=== PATIENT | female | born 1990 | race Caucasian/White ===

== ENCOUNTER 2016-10-19 17:51 | Emergency (ER) | payer BC, OTHER ==
[2016-10-19] MEDS ORDERED: SODIUM CHLORIDE 1,000 ML IV STA (17:52)
--- NOTE | 2016-10-19 17:52 | PDOC ---
History of Present Illness - History of Present Illness Initial Comments: 10/19/16 18:06 Patient is a 26 year old female with significant medical hx of Crohn's disease ( on [place] and PO mesalamine) who is presenting to the ED with lower abdominal pain, nausea and vomiting since two am. Patient reports she developed an onset of crampy, non-radiating lower abdominal pain that worsened with movement, and then began having nausea and vomiting shortly after. She's had about five episodes of vomiting and denies any diarrhea. The patient reports she is able to tolerate fluids but not food. The patient reports she had a normal bowel movement this morning without any blood, mucous or urgency. The patient notes that these symptoms are unlike her flares from crohn's. The patient has 3-4 flares per year. Denies fever, chills, changes in urination. No recent ingestion of river, stream or buckner water. No recent ingestion of raw meat. No recent ingestion of shellfish. No antibiotic use in the past 6 months. Patient recently travelled to [place] for a few days during New Years. No sick contacts with similar symptoms. No blood or mucous noted in the stools. <Carmencita Esteves - Last Filed: 10/19/16 18:39> <Parker Maldonado - Last Filed: 10/19/16 18:46> - General Chief Complaint: Pain Stated Complaint: PELVIC PAIN Time Seen by Provider: 10/19/16 17:52 Past History <Carmencita Esteves - Last Filed: 10/19/16 18:39> - Past Medical History Anemia: No Asthma: No Cancer: No Cardiac Disorders: No CVA: No COPD: No CHF: No Dementia: No Diabetes: No GI Disorders: Yes (COLITIS) Disorders: No HTN: No Hypercholesterolemia: No Liver Disease: No Seizures: No Thyroid Disease: No - Surgical History Abdominal Surgery: No Appendectomy: No Cardiac Surgery: No Cholecystectomy: No Lung Surgery: No Neurologic Surgery: No Orthopedic Surgery: No - Psycho/Social/Smoking Cessation Hx Smoking History: Never smoked Hx Alcohol Use: No Drug/Substance Use Hx: No <Parker Maldonado - Last Filed: 10/19/16 18:46> - Past Medical History Allergies/Adverse Reactions: Allergies Allergy/AdvReac Type Severity Reaction Status Date / Time No Known Allergies Allergy Verified 10/19/16 17:52 Home Medications: Ambulatory Orders Mesalamine Enema [Rowasa Enema -] 1 gm EP HS 07/01/12 Review of Systems - Review of Systems Comments:: 10/19/16 18:12 CONSTITUTIONAL: Absent: fever, chills, diaphoresis, generalized weakness, malaise, loss of appetite HEENT: Absent: rhinorrhea, nasal congestion, throat pain, throat swelling, difficulty swallowing, mouth swelling, ear pain, eye pain, visual changes CARDIOVASCULAR: Absent: chest pain, syncope, palpitations, irregular heart rate, lightheadedness , peripheral edema RESPIRATORY: Absent: cough, shortness of breath, dyspnea with exertion, orthopnea, wheezing, stridor, hemoptysis GASTROINTESTINAL: Present: abdominal pain, nausea, vomiting Absent: abdominal distension, diarrhea, constipation, melena, hematochezia GENITOURINARY: Absent: dysuria, frequency, urgency, hesitancy, hematuria, flank pain, genital pain MUSCULOSKELETAL: Absent: myalgia, arthralgia, joint swelling SKIN: Absent: rash, itching, pallor HEMATOLOGIC/IMMUNOLOGIC: Absent: easy bleeding, easy bruising, lymphadenopathy, frequent infections ENDOCRINE: Absent: unexplained weight gain, unexplained weight loss, heat intolerance, cold intolerance NEUROLOGIC: Absent: headache, focal weakness or paresthesia, dizziness, unsteady gait, seizure, mental status changes, bladder or bowel incontinence. PSYCHIATRIC: Absent: anxiety, depression, suicidal or homicidal ideation, hallucinations <Carmencita Esteves - Last Filed: 10/19/16 18:39> *Physical Exam - Vital Signs Last Vital Signs Temp Pulse Resp BP Pulse Ox 98.4 F 120 H 18 113/77 100 10/19/16 17:52 10/19/16 17:52 10/19/16 17:52 10/19/16 17:52 10/19/16 17:52 - Physical Exam Comments: 10/19/16 18:12 GENERAL: Well developed, well nourished. Awake and alert. No acute distress. HEENT: Normocephalic, atraumatic. PERRLA, EOMI. No conjunctival pallor. Sclera are non- icteric. Dry mucous membranes. Oropharynx is clear. NECK: Supple. Full ROM. No JVD. Carotid pulses 2+ and symmetric, without bruits. No thyromegaly. No lymphadenopathy. CARDIOVASCULAR: Regular rate and rhythm. No murmurs, rubs, or gallops. Distal pulses are 2+ and symmetric. PULMONARY: No evidence of respiratory distress. Lungs clear to auscultation bilaterally. No wheezing, rales or rhonchi. ABDOMINAL: Soft. Minimal suprapubic tenderness on deep palpation. Non-distended. No rebound or guarding. No organomegaly. Normoactive bowel sounds. MUSCULOSKELETAL: Normal range of motion at all joints. No bony deformities or tenderness. No CVA tenderness. EXTREMITIES: No cyanosis. No clubbing. No edema. No calf tenderness. SKIN: Warm and dry. Normal capillary refill. No rashes. No jaundice. NEUROLOGICAL: Alert, awake, appropriate. Cranial nerves 2-12 intact. Normal speech. Gait is normal without ataxia. PSYCHIATRIC: Cooperative. Good eye contact. Appropriate mood and affect. <Carmencita Esteves - Last Filed: 10/19/16 18:39> ED Treatment Course - LABORATORY CBC & Chemistry Diagram: 10/19/16 18:12 10/19/16 18:12 <Carmencita Esteves - Last Filed: 10/19/16 18:39> - LABORATORY CBC & Chemistry Diagram: 10/19/16 18:12 10/19/16 18:12 <Parker Maldonado - Last Filed: 10/19/16 18:46> Medical Decision Making - Medical Decision Making 10/19/16 18:05 The patient is well-appearing and in no acute distress She appears mildly volume deplete Abdomen is soft, with only minimal suprapubic tenderness She does not feel that her current symptoms are consistent with a typical Crohn' s flare Will administer IV fluids Will administer IV Toradol Will obtain labs 10/19/16 18:31 CBC noted with leukocytosis and left shift Repeat abdominal examination unchanged We'll obtain CT of the abdomen and pelvis with oral and IV contrast 10/19/16 18:44 Chemistries noted, with elevated total bilirubin AST, ALT, alkaline phosphatase are normal I suspect this is chronic elevated indirect hyperbilirubinemia, 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 Oncoming Emergency Physician has assumed care for the patient and will complete the evaluation and treatment. <Parker Maldonado - Last Filed: 10/19/16 18:46> *DC/Admit/Observation/Transfer - Attestations Scribe Attestion: 10/19/16 18:13 Documentation prepared by Carmencita Esteves, acting as medical appointment clerk for Parker Maldonado MD. <Carmencita Esteves - Last Filed: 10/19/16 18:39> <Parker Maldonado - Last Filed: 10/19/16 18:46> Diagnosis at time of Disposition: Abdominal pain
[2016-10-19] MEDS ORDERED: KETOROLAC TROMETHAMINE 30 MG/1 ML VIAL IVPUSH ONE (18:06)
[2016-10-19 18:11] LABS: PH,URINE 6.5 (4.5-8); URINE APPEARANCE Clear; URINE BILIRUBIN Negative (NEGATIVE); URINE BLOOD Negative (NEGATIVE); URINE GLUCOSE (UA) Negative (NEGATIVE); URINE KETONE 2+ (NEGATIVE); URINE LEUK ESTERASE Negative (NEGATIVE); URINE NITRITE Negative (NEGATIVE); URINE PROTEIN Negative (NEGATIVE); URINE UROBILINOGEN 0.2 E.U/dl (0.2-1.0)
[2016-10-19 18:13] LABS: URINE COLOR YELLOW
[2016-10-19 18:17] VITALS: TEMP 98.4; BMI 22.6
[2016-10-19 18:27] LABS: BASOPHIL 0.1 % (0-2.0); EOSINOPHIL 0.1 % (0-4.5); MCH 26.5 pg (25.7-33.7); MEAN CELL VOLUME 80.5 fl (80-96); PLATELET COUNT 263 K/MM3 (134-434); RDW 11.9 % (11.6-15.6)
[2016-10-19] MEDS ORDERED: DEXTROSE 5%-NORMAL SALINE 1,000 ML IV SCH (18:30)
[2016-10-19 18:39] LABS: ALBUMIN 4.4 g/dl (3.5-5.0); ALK PHOS 55 U/L (32-92); ANION GAP 8 (8-16); BILIRUBIN,TOTAL 2.2 mg/dl (0.2-1.0); CALCIUM 9.5 mg/dl (8.4-10.2); CO2 26 mmol/L (22-28); CREATININE 0.6 mg/dl (0.6-1.3); GLUCOSE,RANDOM 110 mg/dl (74-106); MAGNESIUM 1.8 mg/dL (1.8-2.4); PHOSPHOROUS 3.5 mg/dl (2.5-4.6); SGOT/AST 42 U/L (10-42); SGPT/ALT 29 U/L (10-40); TOT PROT 7.5 g/dl (6.4-8.3)
[2016-10-19] MEDS ORDERED: SODIUM CHLORIDE 250 ML IV STA (19:13)
[2016-10-19] MEDS ORDERED: FAMOTIDINE 20 MG/50 ML IVPB 50 ML IVPB ONE ×2 (19:14)
--- NOTE | 2016-10-19 21:32 | PDOC ---
*Physical Exam - Vital Signs Last Vital Signs Temp Pulse Resp BP Pulse Ox 98.4 F 120 H 18 113/77 100 10/19/16 17:52 10/19/16 17:52 10/19/16 17:52 10/19/16 17:52 10/19/16 17:52 <LinnCarmencita - Last Filed: 10/19/16 21:37> - Vital Signs Last Vital Signs Temp Pulse Resp BP Pulse Ox 98.4 F 120 H 18 113/77 100 10/19/16 17:52 10/19/16 17:52 10/19/16 17:52 10/19/16 17:52 10/19/16 17:52 - Physical Exam General Appearance: Yes: Nourished, Appropriately Dressed. No: Apparent Distress Respiratory/Chest: negative: Respiratory Distress Cardiovascular: positive: Regular Rhythm, Regular Rate Gastrointestinal/Abdominal: positive: Normal Bowel Sounds, Tender (RLQ AND SUPRAPUBBIC REGION) Integumentary: positive: Normal Color <Travis Campoverde - Last Filed: 10/19/16 23:04> ED Treatment Course - LABORATORY CBC & Chemistry Diagram: 10/19/16 18:12 10/19/16 18:12 - ADDITIONAL ORDERS Additional order review: Laboratory Results 10/19/16 10/19/16 10/19/16 18:12 18:10 17:59 Sodium 134 L Potassium 3.8 Chloride 100 Carbon Dioxide 26 Anion Gap 8 BUN 8 Creatinine 0.6 Creat Clearance w eGFR > 60 Random Glucose 110 H Calcium 9.5 Phosphorus 3.5 Magnesium 1.8 Total Bilirubin 2.2 H Direct Bilirubin 0.3 H AST 42 ALT 29 Alkaline Phosphatase 55 Total Protein 7.5 Albumin 4.4 Lipase 27 Urine Color Urine Appearance Urine pH Ur Specific Tripp Urine Protein Urine Glucose (UA) Urine Ketones Urine Blood Urine Nitrite Urine Bilirubin Urine Urobilinogen Ur Leukocyte Esterase Urine HCG, Qual Negative 10/19/16 10/19/16 17:59 17:59 Sodium Potassium Chloride Carbon Dioxide Anion Gap BUN Creatinine Creat Clearance w eGFR Random Glucose Calcium Phosphorus Cancelled Magnesium Cancelled Total Bilirubin Direct Bilirubin AST ALT Alkaline Phosphatase Total Protein Albumin Lipase Urine Color Yellow Urine Appearance Clear Urine pH 6.5 Ur Specific Tripp 1.015 Urine Protein Negative Urine Glucose (UA) Negative Urine Ketones 2+ H Urine Blood Negative Urine Nitrite Negative Urine Bilirubin Negative Urine Urobilinogen 0.2 e.u/dl Ur Leukocyte Esterase Negative Urine HCG, Qual 10/19/16 18:12 RBC 5.21 H MCV 80.5 MCHC 33.0 RDW 11.9 MPV 9.0 Neutrophils % 88.0 H Lymphocytes % 7.3 L Monocytes % 4.5 Eosinophils % 0.1 Basophils % 0.1 - RADIOLOGY Radiograph Interpretation: 10/19/16 21:37 Poultry Hatchery Manager: ([email or web address]) Begin of Report Content Referring Physician: Parker Maldonado Patient Name: Cami Sánchez THIS IS A FINAL REPORT FROM [facility] COORDINATOR EXAM: CT of the abdomen and pelvis with both oral and IV contrast. 83 cc of Omnipaque utilized IV. IMAGES: 384 EXAM DATE AND TIME: 10/19/2016 at 8:25 PM REASON FOR EXAM: Abdominal pain. History of Crohn's disease. 26-year-old female. COMPARISON: None. FINDINGS: Cardiac silhouette is normal in appearance. Lung bases are clear. Uniform attenuation and enhancement is seen throughout the liver, spleen and pancreas. No ductal dilatation, mass or cystic change. Normal gallbladder is present in the right upper quadrant. No adrenal masses. Good excretion of IV contrast by both kidneys is present without hydronephrosis, mass or cystic change. No retroperitoneal adenopathy or fibrosis. Stomach, small bowel and colon all demonstrate positive contrast within them. No evidence of bowel wall thickening. No acute inflammatory changes the right or left lower quadrant. No evidence of obstruction or ileus. Pelvic CT shows the appendix in the right lower quadrant to be normal in appearance. No diverticular disease. The uterus demonstrates free fluid within the endometrial cavity. The uterus is also mildly enlarged but no visible uterine fibroids. In the right adnexal region there is a 4.0 x 3.6 x 6.0 cm complex cystic structure with increased attenuation within it as well as other cystic components central to it. The left ovary measures 2.7 x 2.0 x 1.2 cm overall dimension and shows no evidence of a mass or cystic change. Fluid is seen in the cul-de-sac. The bladder is normal in appearance. No evidence of ureterolithiasis or ureteral dilatation. The perivesicular and perirectal fat is well preserved. No visible bone or soft tissue abnormality. No erosive changes to the SI joints. IMPRESSION There is a large, 6.0 cm complex cyst associated with the right ovary and possibly the right fallopian tube. The increased attenuation within it could be associated with hemorrhagic byproducts or increased protein content. No gas seen within this cystic structure. There is fluid in the cul-de-sac. The differential diagnosis includes a hemorrhagic cyst, an endometrioma, and a tubo-ovarian abscess. Mild enlargement of the uterus is noted of indeterminate origin. Fluid is present within the endometrial cavity. This could be associated with a recently ruptured Graafian follicle. The appendix is normal in appearance. No evidence of diverticular disease. No evidence of acute or chronic inflammatory bowel disease. The SI joints are normal in appearance. No evidence of nephrolithiasis or cholelithiasis. THIS DOCUMENT HAS BEEN ELECTRONICALLY SIGNED Kashif Centeno M.D. 10/19/2016 21:17 PANCHO Blanco Please call Imaging Director Of Reservations [phone] ([phone]) with questions. End of Report Content - Medications Given in the ED: ED Medications Discontinued Medications Generic Name Dose Route Start Last Admin Trade Name Gatoq PRN Reason Stop Dose Admin Sodium Chloride 1,000 mls @ 1,000 mls/hr 10/19/16 17:52 10/19/16 18:16 Normal Saline - IV 10/19/16 18:51 1,000 mls/hr ASDIR STA Administration Sodium Chloride 250 mls @ 500 mls/hr 10/19/16 19:13 10/19/16 19:16 Normal Saline - IV 10/19/16 19:42 500 mls/hr ASDIR STA Administration Famotidine/Sodium Chloride 50 mls @ 100 mls/hr 10/19/16 19:14 10/19/16 19:15 Pepcid 20 Mg Premixed Ivpb - IVPB 10/19/16 19:43 100 mls/hr ONCE ONE Administration Ketorolac Tromethamine 30 mg 10/19/16 18:06 10/19/16 18:16 Toradol Injection - IVPUSH 10/19/16 18:07 30 mg ONCE ONE Administration <Carmencita Esteves - Last Filed: 10/19/16 21:37> - LABORATORY CBC & Chemistry Diagram: 10/19/16 18:12 10/19/16 18:12 - ADDITIONAL ORDERS Additional order review: Laboratory Results 10/19/16 10/19/16 10/19/16 18:12 18:10 17:59 Sodium 134 L Potassium 3.8 Chloride 100 Carbon Dioxide 26 Anion Gap 8 BUN 8 Creatinine 0.6 Creat Clearance w eGFR > 60 Random Glucose 110 H Calcium 9.5 Phosphorus 3.5 Magnesium 1.8 Total Bilirubin 2.2 H Direct Bilirubin 0.3 H AST 42 ALT 29 Alkaline Phosphatase 55 Total Protein 7.5 Albumin 4.4 Lipase 27 Urine Color Urine Appearance Urine pH Ur Specific Tripp Urine Protein Urine Glucose (UA) Urine Ketones Urine Blood Urine Nitrite Urine Bilirubin Urine Urobilinogen Ur Leukocyte Esterase Urine HCG, Qual Negative 10/19/16 10/19/16 17:59 17:59 Sodium Potassium Chloride Carbon Dioxide Anion Gap BUN Creatinine Creat Clearance w eGFR Random Glucose Calcium Phosphorus Cancelled Magnesium Cancelled Total Bilirubin Direct Bilirubin AST ALT Alkaline Phosphatase Total Protein Albumin Lipase Urine Color Yellow Urine Appearance Clear Urine pH 6.5 Ur Specific Tripp 1.015 Urine Protein Negative Urine Glucose (UA) Negative Urine Ketones 2+ H Urine Blood Negative Urine Nitrite Negative Urine Bilirubin Negative Urine Urobilinogen 0.2 e.u/dl Ur Leukocyte Esterase Negative Urine HCG, Qual 10/19/16 18:12 RBC 5.21 H MCV 80.5 MCHC 33.0 RDW 11.9 MPV 9.0 Neutrophils % 88.0 H Lymphocytes % 7.3 L Monocytes % 4.5 Eosinophils % 0.1 Basophils % 0.1 - Medications Given in the ED: ED Medications Discontinued Medications Generic Name Dose Route Start Last Admin Trade Name Freq PRN Reason Stop Dose Admin Sodium Chloride 1,000 mls @ 1,000 mls/hr 10/19/16 17:52 10/19/16 18:16 Normal Saline - IV 10/19/16 18:51 1,000 mls/hr ASDIR STA Administration Sodium Chloride 250 mls @ 500 mls/hr 10/19/16 19:13 10/19/16 19:16 Normal Saline - IV 10/19/16 19:42 500 mls/hr ASDIR STA Administration Famotidine/Sodium Chloride 50 mls @ 100 mls/hr 10/19/16 19:14 10/19/16 19:15 Pepcid 20 Mg Premixed Ivpb - IVPB 10/19/16 19:43 100 mls/hr ONCE ONE Administration Ketorolac Tromethamine 30 mg 10/19/16 18:06 10/19/16 18:16 Toradol Injection - IVPUSH 10/19/16 18:07 30 mg ONCE ONE Administration <Travis Campoverde - Last Filed: 10/19/16 23:04> Progress Note - Progress Note Progress Note: SX STARTED AT AROUND 2am kast night w rlq pain followed by vomiting pain lastewd all night and, in spite pain control, remains constant. no more emesis. Ct shows 6 cm cyst on rt adnexa will Doppler to r/o torsion which at this point, is the most serious concern 11:02 pm Doppler showing good flow and US w/ actuel size of 2.1 cm for cyst d/c home will follow w/ pmd <Travis Campoverde - Last Filed: 10/19/16 23:04> *DC/Admit/Observation/Transfer <Carmencita Esteves - Last Filed: 10/19/16 21:37> - Discharge Dispostion Admit: No <Travis Campoverde - Last Filed: 10/19/16 23:04> Diagnosis at time of Disposition: Abdominal pain Qualifiers: Abdominal location: right lower quadrant Qualified Code(s): R10.31 - Right lower quadrant pain Cyst of ovary Qualifiers: Laterality: right Qualified Code(s): N83.20 - Unspecified ovarian cysts - Discharge Dispostion Disposition: HOME Condition at time of disposition: Improved - Patient Instructions Additional Instructions: CONTINUE MEDICATIONS PRESCRIBED TYLENOL FOR PAIN RETURN IF WORSENING OR NEW SYMPTOMS SEE YOUR DOCTOR FRIDAY
[2016-10-19 23:18] VITALS: BP 122/68; PULSE 88
== END 2016-10-19 23:18 | disposition home or self-care (01) ==
LOC: FER 17:51
PROC: 3E033GC Introduction of Other Therapeutic Substance into Peripheral Vein, Percutaneous Approach (ICD-10-PCS; principal; 2016-10-19)
PROC: 3E0333Z Introduction of Anti-inflammatory into Peripheral Vein, Percutaneous Approach (ICD-10-PCS; 2016-10-19)
PROC: 3E0337Z Introduction of Electrolytic and Water Balance Substance into Peripheral Vein, Percutaneous Approach (ICD-10-PCS; 2016-10-19)
DX: R10.10 Upper abdominal pain, unspecified (principal); K52.9 Noninfective gastroenteritis and colitis, unspecified; K50.90 Crohn's disease, unspecified, without complications
CPT/HCPCS: 36415; 74177-TC; 76856-TC; 80053; 81003; 83690; 83735; 84100; 84703; 85025; 86140; 99284-25